=== PATIENT | female | born 1960 ===

== ENCOUNTER 2020-11-08 | Outpatient (CLI) | payer OTHER | END 2020-11-08 09:50 | disposition home or self-care (01) | LOC: PPH VACUNA → EDSEX → PPH VACUNA 09:50 | DX: Z23 Encounter for immunization (principal) ==

== ENCOUNTER → 2020-11-29 08:00 | Outpatient (CLI) | payer OTHER | END | disposition home or self-care (01) | LOC: PPH VACUNA 08:00 | DX: Z23 Encounter for immunization (principal) ==